=== PATIENT | female | born 1955 | race Caucasian/White ===

== ENCOUNTER 2017-09-29 06:34 | Inpatient (IN) | payer OTHER ==
[2017-09-29] VITALS (7 sets, daily range): BP systolic 106–152; BP diastolic 70–83
[~2017-09-29] VITALS: Ht 157.4 cm; Wt 91.3 kg
--- NOTE | 2017-09-29 07:10 | NUR ---
REPORT RECEIVED FROM LEONOR PATEL. PT SITTING UP IN BED TALKING WITH FAMILY. PT DENIES PAIN AT THIS TIME. WILL CONTINEU TO MONITOR.
[2017-09-29 08:27] LABS: BASO # 0.1 10*3/uL (0.0-0.1); BASO % 0.6 % (0.0-1.0); EOS # 0.3 10*3/uL (0.0-0.4); EOS % 3.2 % (1.0-4.0); HEMATOCRIT 37.2 % (37.0-47.0); HEMOGLOBIN 11.9 g/dl (12.0-16.0); LYMPH # 1.5 10*3/uL (1.3-4.4); LYMPH % 16.9 % (27.0-41.0); MEAN CELL VOLUME 86.9 fl (81.0-99.0); MEAN CORPUSCULAR HGB 27.8 pg (27.0-31.0); MEAN PLATELET VOLUME 9.3 fl (9.6-12.3); MONO # 0.6 10*3/uL (0.1-1.0); MONO % 6.8 % (3.0-9.0); NEUT # 6.3 10*3/uL (2.3-7.9); PLATELET COUNT AUTOMATED 415 10*3/uL (130-400); RED BLOOD COUNT 4.28 10*6/uL (4.10-5.10); RED CELL DISTRI WIDTH 14.2 % (0-14.5); WHITE BLOOD COUNT 8.8 10*3/uL (4.8-10.8)
[2017-09-29 08:49] LABS: ALBUMIN 3.1 gm/dl (3.1-4.5); ALKALINE PHOSPHATASE 77 U/L (45-117); BUN 13 mg/dl (7-24); CHLORIDE 106 mmol/L (98-107); CREATININE 0.78 mg/dL (0.55-1.02); POTASSIUM 3.5 mmol/L (3.5-5.1); SGOT/AST 15 IU/L (3-35); SGPT/ALT 14 U/L (12-78); SODIUM 140 mmol/L (136-145); TOTAL PROTEIN 9.6 gm/dL (6.4-8.2)
--- NOTE | 2017-09-29 09:30 | NUR ---
Time: 929 A 62 year old FEMALE admitted to 5E under services of CARLOS ARAUJO DO. Pt. arrived via bed from ER. Chief complaint: UNABLE TO AMBULATE/LEFT KNEE INJURY. DONN DE LA PAZ
[2017-09-29] MEDS ORDERED: KLONOPIN0.5 MG PO (09:46)
--- NOTE | 2017-09-29 14:29 | NUR ---
PHYSICAL THERAPY PAtient evaluated on 5, full evaluation to follow. Coninue with PT as per plan of care with fall, mew foot drop left and poor safety and balance precautions. SNF versus in-pateint rehba for significantly impaired functional mobility sincne fall. May require ortho versus neuro consult for left foot drop - acute. PAtient is high complexity via chart review, tests and evaluation: 18237. thank you for this referral. Meghann Faria,PT
--- NOTE | 2017-09-29 14:34 | NUR ---
Occupational Therapy evaluation completed this date on 5 with full eval to follow.Precautions include fall risk, new left foot drop, l knee pain, low complexity level, new ww use. Recommend OT per POC and home with home health PT,OT,SN. Thank you for this referral. Michelle Sanchez OTR/L
--- NOTE | 2017-09-29 18:44 | NUR ---
PATIENT RESTING IN BED. PATIENT HAS DENIED ANY PAIN OR DISCOMFORT SINCE BEING ADMITTED TO THE FLOOR. PATIENT DENIES DIZZINESS OR SOB WHEN TRANSFERRING TO [facility]. PATIENT VERBALIZES WEAKNESS IN HER LEFT FOOT THAT LED TO HER RECENT FALL. PATIENT IS MONITORED. HOB ELEVATED. CALL LIGHT IS WITHIN REACH. SEE ASSESSMENT.
[2017-09-30] VITALS: BP 106/59
[2017-09-30 07:00] LABS: BASO % 0.6 % (0.0-1.0); EOS # 0.6 10*3/uL (0.0-0.4); EOS % 8.7 % (1.0-4.0); HEMATOCRIT 36.1 % (37.0-47.0); HEMOGLOBIN 11.6 g/dl (12.0-16.0); LYMPH # 1.8 10*3/uL (1.3-4.4); LYMPH % 27.1 % (27.0-41.0); MEAN CELL VOLUME 88.7 fl (81.0-99.0); MEAN CORPUSCULAR HGB 28.5 pg (27.0-31.0); MEAN CORPUSCULAR HGB CONC 32.1 g/dl (33.0-37.0); MEAN PLATELET VOLUME 9.2 fl (9.6-12.3); MONO # 0.5 10*3/uL (0.1-1.0); MONO % 8.1 % (3.0-9.0); NEUT # 3.6 10*3/uL (2.3-7.9); PLATELET COUNT AUTOMATED 382 10*3/uL (130-400); RED BLOOD COUNT 4.07 10*6/uL (4.10-5.10); RED CELL DISTRI WIDTH 14.3 % (0-14.5); WHITE BLOOD COUNT 6.6 10*3/uL (4.8-10.8)
[2017-09-30 07:30] LABS: ALBUMIN 2.9 gm/dl (3.1-4.5); BUN 12 mg/dl (7-24); CHLORIDE 105 mmol/L (98-107); CHOLESTEROL 189 mg/dL (<200); POTASSIUM 3.2 mmol/L (3.5-5.1); SGOT/AST 15 IU/L (3-35); SGPT/ALT 14 U/L (12-78); SODIUM 139 mmol/L (136-145); TRIGLYCERIDES 110 mg/dl (<150); VLDL CHOLESTEROL 22 mg/dL (6-40)
[2017-09-30 07:38] LABS: ALKALINE PHOSPHATASE 67 U/L (45-117); CREATININE 0.75 mg/dL (0.55-1.02); FREE T4 1.04 ng/dl (0.76-1.46); HDL CHOLESTEROL 43 mg/dl (40-60); LDL CHOLESTEROL 124 mg/dL (9-159); PHOSPHOROUS 3.5 mg/dL (2.5-4.9); TOTAL PROTEIN 8.6 gm/dL (6.4-8.2)
--- NOTE | 2017-09-30 07:46 | NUR ---
PATIENT IS RESTING COMFORTABLY IN BED. PATIENT DENIES HAVING ANY PAIN OR DISCOMFORT AT THIS TIME. PATIENT HAS GENERALIZED WEAKNESS IN THE LEFT FOOT THAT PATIENT VERBALIZES FEELS NUMB AT TIMES. PATIENT DENIES DIZZINESS, SOB UPON EXERTION OR TRANSITIONING TO THE BSC. CALL LIGHT IS WITHIN REACH. SEE ASSESSMENT.
[2017-09-30 08:00] VITALS: BP 130/75
[2017-09-30 08:14] LABS: VITAMIN D, 25-HYDROXY 11.3 ng/mL (30-100)
--- NOTE | 2017-09-30 08:30 | NUR ---
Finish Mixer in to talk to patient. Patient states lives at home with her son. There are 6 steps in the home that she uses. There are other steps in the home but she doesn't use them. Physician: Dr. Rex Amador [facility]: [facility] Home health services: no Patient's level of ADLs: MAX ASSIST Patient has working utilities: yes DME: cane Follow-up physician's appointment after d/c: will be made by hospitalist nurse director upon discharge Does patient want to access PORTAL?: no Discharge plan discussed with patient. She lives at home with her son. She lives on the first floor of the home and there are 6 steps to get into the home. She states she ambulates with a cane. Her son cooks dinner. She needs assistance with bathing. She is willing to go to a local SNF. business continuity planner/nursing home social worker will follow. BRYAN MARIE
--- NOTE | 2017-09-30 09:49 | NUR ---
OT DAILY NOTE OT ATTEMPTED THIS AM. PATIENT WAS EATING BREAKFAST AND NURSING WAS IN WITH PATIENT ALSO. CONTINUE CURRENT OT PLAN OF CARE. MAGUE SCHAFFER/Ariane
--- NOTE | 2017-09-30 10:56 | NUR ---
PHYSICAL THERAPY Patient was out of room this am for x-rays when approached by therapist and not seen for treatment. Will continue per POC as able and will attempt this pm as appropriate. Fran Verma, DENTAL BILLER
--- NOTE | 2017-09-30 11:02 | NUR ---
PATIENT BACK ON THE FLOOR FROM CT SCAN VIA WHEELCHAIR.
[2017-09-30 12:00] VITALS: BP 112/59
--- NOTE | 2017-09-30 12:06 | NUR ---
Patient accepted by dain Brown started, waiting on auth.
--- NOTE | 2017-09-30 14:58 | NUR ---
PHYSICAL THERAPY Patient was supine in bed watching television upon therapist arrival for pm visit. Patient seen 1:1 x 12 minutes voicing no new c/o's and stated she was told x-rays were negative. Patient transfers sup to sit EOB CGA and tolerates 6 minutes static sit , SBA followed by several sit to stand transfers, Min A with use of wh walker, tolerating < 1 minute stand before quick onset of fatigue. Patient also able to perform heel raises x 10 reps each and returned to supine in bed, remaining with call light, tray table and telephone. Will continue per POC to improve functional transfers and mobility as tolerated. Fran Verma, RADIO EQUIPMENT REPAIRER
[2017-09-30 16:00] VITALS: BP 139/69
[2017-09-30 20:00] VITALS: BP 111/52
--- NOTE | 2017-09-30 20:09 | NUR ---
PATIENT SITTING UP IN BED AT THIS TIME, NO C/O'S OR DISTRESS NOTED. SEE SHIFT ASSESMENT. BED IN LOW POSITION, SIDERAILS UP X2 FOR SAFETY AND CALL LIGHT WITHIN REACH/PATIENT ENCOURAGED TO CALL IF ASSISTANCE IS NEEDED.
--- NOTE | 2017-09-30 22:00 | NUR ---
UP TO BEDSIDE COMMODE WITH LITTLE ASSISTANCE, PT HAD LARGE LIQUID FOUL SMELING STOOL. PT. CLIMBED INTO BED LEADING WITH LEFT LEG BENT TO CRAWL INTO THE BED. PT. STATED WHEN ASKED ABOUT PAIN IN KNEE STATED "IT DOESN'T HURT JUST SOMETIMES WHEN I PUT WEIGHT ON IT."
[2017-10-01] VITALS: BP 99/51
[2017-10-01 03:47] VITALS: BP 100/58
--- NOTE | 2017-10-01 06:19 | NUR ---
REFUSED PROTONIX. RASH UNDER BOTH BREAST LESS RED THAN LAST NIGHT AT 22OO
[2017-10-01 06:28] LABS: ALBUMIN 2.9 gm/dl (3.1-4.5); ALKALINE PHOSPHATASE 73 U/L (45-117); BUN 13 mg/dl (7-24); CHLORIDE 107 mmol/L (98-107); CREATININE 0.74 mg/dL (0.55-1.02); POTASSIUM 3.2 mmol/L (3.5-5.1); SGOT/AST 16 IU/L (3-35); SGPT/ALT 14 U/L (12-78); SODIUM 140 mmol/L (136-145); TOTAL PROTEIN 8.7 gm/dL (6.4-8.2)
[2017-10-01 08:00] VITALS: BP 108/57
--- NOTE | 2017-10-01 08:00 | NUR ---
Waterworks Pump Station Operator in to see patient. There are no new requests or needs at this time. When medically stable patient will be discharged to [facility].
--- NOTE | 2017-10-01 09:18 | NUR ---
PHYSICAL THERAPY Patient presented to therapy with report of feeling better. Patient performed supine to sitting at EOB with SBA. Patient performed sit to stand transfer to bedside chair with CGA. Patient performed sit to stands x 5 in row with SBA and verbal cues for hand placement. Patient performed sitting ther ex in all planes x 20 reps. Patient was left in seated position with LEs raised and call light within reach. Patient was 1:1 with this HAM MARKER for 25 minutes total. KWASI KUNZ HAM MARKER
--- NOTE | 2017-10-01 09:30 | NUR ---
Private Eye in to see patient. No new needs or requests at this time. When medically stable patient to be discharged to [facility].
--- NOTE | 2017-10-01 10:49 | NUR ---
PATIENT SEEN 1:1 OT THIS DATE. PATIENT IDENTIFIED BY NAME AND DATE OF . PATIENT IN ROOM SEATED IN RECLINER. PATIENT REPORTS FEELING SLEEPY. PATIENT COMPLETED STAND PIVOT TRANSFER RECLINER TO BEDSIDE COMMODE MIN A USE FWW WITH VERBAL CUES SAFETY. PATIENT COMPLETED TOILETING TASK MODA WITH VERBAL CUES USE FWW FOR SUPPROT. COMPLETED STAND PIVOT TRANSFER BEDSIDE COMMODE TO RECLINER USE FWW MIN A WITH MOD VERBAL CUES TECH AND SAFETY. PATIENT REQUESTED TO LIE DOWN IN BED. PATIENT COMPLETED STAND PIVOT XFER USE FWW RECLINER TO BED MIN A AND SIT TO SUPINE MIN A. PATIENT COMPLETED BUE AROM IN BED INCLUDED SHOULDER FLEX/EXT, HORIZONTAL ABD/ADD, HAND FLEX/EXT,AND WRIST FLEX/EXT WITH NO ELBOW FLEX/EXT SECONDARY PATIENT REPORTS SORENESS IV SITE. PATIENT VERBALIZED NO FURTHER NEEDS WITH CALL LIGHT WITHIN REACH. WENDY BOWSER/Ariane
[2017-10-01 12:00] VITALS: BP 116/46
--- NOTE | 2017-10-01 12:07 | NUR ---
Still waiting on precert for marnie baldwin.
[2017-10-01 16:00] VITALS: BP 96/51
[2017-10-01 20:00] VITALS: BP 120/61
[2017-10-02] VITALS: BP 110/50
--- NOTE | 2017-10-02 00:48 | NUR ---
PATIENT RESTING QUIETLY IN BED. NO SXS OF DISTRESS NOTED. RESPIRATIONS EASY/REG. CALL LIGHT IN REACH.
--- NOTE | 2017-10-02 04:34 | NUR ---
SLEEPING, NO SXS OF DISTRESS. CALL LIGHT IN REACH
[2017-10-02 08:00] VITALS: BP 106/54
--- NOTE | 2017-10-02 10:27 | NUR ---
PHYSICAL THERAPY Therapist arrives with patient semi reclined in bed with bed alarm on. She reports no pain upon arrival. She was agreeable to therapy today and completed bed to chair transfer using walker to transfer and verbal cues to push from bed opposed to pulling on walker to stand and verbal cues on hand placement when sitting down opposed to "falling" into chair. She completed seated therex this session as well completing 20x March, LAQ and heel toe raises with difficulty raising the toes on the left le due to drop foot. She completed chair to bed transfer with only SBA to complete task using walker for support during transfer and improved safety this time. She completed session with no reports of pain; just fatigue from her medication. She was left in semireclined position with bed alarm back on. Pt was seen 1:1 with SALES AND MERCHANDISING ASSOCIATE today. Geni Siddiqui PTA
[2017-10-02 12:00] VITALS: BP 126/71
[2017-10-02 16:00] VITALS: BP 119/70
[2017-10-02 20:00] VITALS: BP 114/72
[2017-10-03] VITALS: BP 119/57
--- NOTE | 2017-10-03 01:59 | NUR ---
SLEEPING, NO SXS OF DISTRESS. CALL LIGHT IN REACH. WILL MONITOR .
--- NOTE | 2017-10-03 03:14 | NUR ---
24 HOUR CHART CHECK COMPLETE
[2017-10-03 06:22] LABS: BASO # 0.1 10*3/uL (0.0-0.1); BASO % 0.9 % (0.0-1.0); EOS # 0.5 10*3/uL (0.0-0.4); EOS % 8.1 % (1.0-4.0); HEMATOCRIT 35.7 % (37.0-47.0); HEMOGLOBIN 11.5 g/dl (12.0-16.0); LYMPH # 2.3 10*3/uL (1.3-4.4); LYMPH % 34.6 % (27.0-41.0); MEAN CELL VOLUME 87.9 fl (81.0-99.0); MEAN CORPUSCULAR HGB 28.3 pg (27.0-31.0); MEAN CORPUSCULAR HGB CONC 32.2 g/dl (33.0-37.0); MEAN PLATELET VOLUME 9.4 fl (9.6-12.3); MONO # 0.7 10*3/uL (0.1-1.0); MONO % 10.3 % (3.0-9.0); NEUT % 45.6 % (47.0-73.0); PLATELET COUNT AUTOMATED 352 10*3/uL (130-400); RED BLOOD COUNT 4.06 10*6/uL (4.10-5.10); RED CELL DISTRI WIDTH 14.2 % (0-14.5); WHITE BLOOD COUNT 6.5 10*3/uL (4.8-10.8)
[2017-10-03 06:38] LABS: BUN 12 mg/dl (7-24); CHLORIDE 106 mmol/L (98-107); CREATININE 0.68 mg/dL (0.55-1.02); POTASSIUM 3.5 mmol/L (3.5-5.1); SODIUM 140 mmol/L (136-145)
[2017-10-03 08:00] VITALS: BP 104/55
--- NOTE | 2017-10-03 08:30 | NUR ---
Patient resting quietly with no c/o discomfort. Respirations easy and regular. Vital signs stable. No overt distress. EDGAR ACEVEDO R
--- NOTE | 2017-10-03 11:17 | NUR ---
[facility] CALLED AND STATE THEY HAVE PREAUTH. AND THAT SHE COULD COME TODAY. DR KNUTSON CALLED AND NOTIFIED.
[2017-10-03 12:00] VITALS: BP 109/62
[2017-10-03] MEDS ORDERED: VITAMIN D-32000 UNIT PO (12:50)
--- NOTE | 2017-10-03 14:15 | NUR ---
CALLED REPORT TO SHUKRI.
--- NOTE | 2017-10-03 14:20 | NUR ---
Discharge instructions reviewed with patient/family. Patient receptive and verbalizes understanding. Follow-up care arranged. Written instructions given to patient/family. EDGAR ACEVEDO
--- NOTE | 2017-10-04 08:18 | NUR ---
PHYSICAL THERAPY CO-SIGN I approve of the Phyical Therapy notes written above. DAVE MCCLOUD PT
== END 2017-10-03 14:20 | disposition other institution (70) | DRG 914 ==
LOC: ED 06:34 → EDHOLD 08:17 → 5E 08:17 → 4E 09-30 12:40
PROVIDERS: Emergency Medicine; Internal Medicine; Registered Nurse; Student in an Organized Health Care Education/Training Program; ADMIT Internal Medicine
DX: S89.92XA Unspecified injury of left lower leg, initial encounter (principal); E44.0 Moderate protein-calorie malnutrition; B37.2 Candidiasis of skin and nail; D47.3 Essential (hemorrhagic) thrombocythemia; E55.9 Vitamin D deficiency, unspecified; D64.9 Anemia, unspecified; R26.2 Difficulty in walking, not elsewhere classified; F41.9 Anxiety disorder, unspecified; R73.9 Hyperglycemia, unspecified; M21.372 Foot drop, left foot; Z90.49 Acquired absence of other specified parts of digestive tract; Z68.36 Body mass index [BMI] 36.0-36.9, adult; X50.1XXA Overexertion from prolonged static or awkward postures, initial encounter; Y92.89 Other specified places as the place of occurrence of the external cause; Y93.89 Activity, other specified; Y99.8 Other external cause status